=== PATIENT | male | born 1965 ===

== ENCOUNTER 2023-05-20 22:17 | Outpatient (CLI) | payer MEDICAID | END 2023-05-20 22:18 | disposition short-term general hospital (02) | LOC: EMS 22:17 | DX: R11.2 Nausea with vomiting, unspecified (principal); R42 Dizziness and giddiness; R00.2 Palpitations; R53.83 Other fatigue; R06.02 Shortness of breath; R00.1 Bradycardia, unspecified | CPT/HCPCS: A0425; A0427; A0999 ==